=== PATIENT | male | born 1985 | race African-American/Black ===

== ENCOUNTER 2017-10-16 15:03 | Emergency (ER) | payer OTHER ==
[2017-10-16 15:33] VITALS: BP 140/75
--- NOTE | 2017-10-16 17:11 | ED Physician Documentation ---
PD HPI HEENT - Stated complaint Stated Complaint: MOUTH SWELLING - Chief complaint Chief Complaint: Heent - History obtained from History obtained from: Patient - History of Present Illness Timing - onset: How many days ago (3) Timing - duration: Days (3) Timing - details: Gradual onset, Still present Location: Other (left upper eyelid with swelling and redness for 3 days, and devleoping focal lump at eyelid margin. Worsening each day.) Associated symptoms: Other (no eye discharge). No: Fever, Congestion, Rhinorrhea, Headache Similar symptoms before: Has not had sx before Recently seen: Not recently seen Review of Systems Constitutional: denies: Fever, Chills Eyes: denies: Loss of vision, Decreased vision, Photophobia, Discharge Nose: denies: Rhinorrhea / runny nose, Congestion Throat: denies: Sore throat Respiratory: denies: Cough PD PAST MEDICAL HISTORY - Past Medical History Past Medical History: No - Past Surgical History Past Surgical History: No - Present Medications Home Medications: Ambulatory Orders Medication Instructions Recorded Confirmed Sulfamethox/Trimeth 800/160 1 each PO BID #10 tablet 10/16/17 [Bactrim Ds 800/160] - Allergies Allergies/Adverse Reactions: Allergies Allergy/AdvReac Type Severity Reaction Status Date / Time No Known Drug Allergies Allergy Verified 10/16/17 15:28 - Social History Does the pt smoke?: No Smoking Status: Never smoker Does the pt drink ETOH?: No Does the pt have substance abuse?: No PD ED PE NORMAL - Vitals Vital signs reviewed: Yes - General General: Alert and oriented X 3, No acute distress, Well developed/nourished - HEENT HEENT: PERRL, EOMI (without pain nor diplopia. ), Other (left upper eyelid with redness and swelling. Focal area of swelling with almost pointing lateral margin c/w stye/infection. No drainage. ) - Neck Neck: Supple, no meningeal sign, No adenopathy - Cardiac Cardiac: RRR, No murmur - Respiratory Respiratory: Clear bilaterally Results - Vitals Vitals: Vital Signs - 24 hr 10/16/17 15:28 Temperature 36.1 C L Heart Rate 93 Respiratory 16 Rate Blood Pressure 140/75 H O2 Saturation 100 Oxygen O2 Source Room air PD MEDICAL DECISION MAKING - ED course Complexity details: considered differential, d/w patient Departure - Departure Disposition: 01 Home, Self Care Clinical Impression: Eyelid cellulitis Qualifiers: Laterality: left Qualified Code(s): H00.036 - Abscess of eyelid left eye, unspecified eyelid Stye external Qualifiers: Laterality: left Eyelid: upper Qualified Code(s): H00.014 - Hordeolum externum left upper eyelid Condition: Stable Record reviewed to determine appropriate education?: Yes Instructions: ED Cellulitis Facial, ED Hordeolum Follow-Up: [facility] [Provider Group] Prescriptions: Sulfamethox/Trimeth 800/160 [Bactrim Ds 800/160] 1 each PO BID #10 tablet Comments: This looks like an infected gland of the eyelid with extension of the infection into the tissue of the eyelid. Use the erythromycin antibiotic ointment 4 times a day to the area over the next few days until all better. Also take oral Bactrim twice daily for the next 5 days. Warm moist towels to the area to improve blood flow to help fight the infection. It may also help promote drainage from the margin of the lid. Tylenol or ibuprofen if needed for pain. Recheck if not improved over the next couple of days. Discharge Date/Time: 10/16/17 17:55
[2017-10-16] MEDS ORDERED: ERYTHROMYCIN OPHTH OINT 1 GM TUBE LEFTEYE STA (17:27)
[2017-10-16] MEDS ORDERED: SULFAMETH/TRIMETH DS 800/160 MG TABLET PO STA (17:27)
[2017-10-16] MEDS ORDERED: SULFAMETH/TRIMETH DS 800/160 MG TABLET PO ONE (17:46)
[2017-10-16] MEDS ORDERED: ERYTHROMYCIN OPHTH OINT 1 GM TUBE ONE (17:47)
== END 2017-10-16 17:55 | disposition home or self-care (01) ==
LOC: ED 15:03
DX: H00.014 Hordeolum externum left upper eyelid (principal); H00.036 Abscess of eyelid left eye, unspecified eyelid
CPT/HCPCS: 99283; A9270; J3490